=== PATIENT | female | born 2005 | race Caucasian/White ===

== ENCOUNTER 2024-11-17 09:56 | Emergency (ER) | payer OTHER, SELFPAY ==
[2024-11-17 10:01] VITALS: BP 128/85; PULSE 77; TEMP 36.5; O2SAT 97; BMI 25.7
--- OUTSIDE RECORDS SUMMARY | 2024-11-17 10:04 | XMS_ITS | Encounter Summary ---
Author Organization [facility] Address [address] [place] [address] Care Team Providers Care Early Childhood Worker Name Role Phone Bud Park MD Primary Care Provider Unava ilable Encounter Details Date Type Department Care Team (Latest Contact Info) Description 01/31/2006 Outpatient Historical [facility] [place] [address] [place] [phone] Bud Park MD NO ADDRESS ON FILE Unspecified Constipation (Primary Dx); Vaccine for influenza Social History Tobacco Use Types Packs/Day Years Used Date Smoking Tobacco: Never Assessed Comments Unknown Sex and Gender Information Value Date Recorded Sex Assigned at Not on file Legal Sex Female 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
--- OUTSIDE RECORDS SUMMARY | 2024-11-17 10:04 | XMS_ITS | Encounter Summary ---
Author Organization [facility] Address [address] [place] [address] Care Team Providers Care Rabbit Fancier Name Role Phone Garry Busch MD Primary Care Provider [phone] Reason for Visit * Reason Comments Med Refill Encounter Details Date Type Department Care Team (Late st Contact Info) Description 07/29/2020 Refill [facility] [address] [place] [address] Funmilayo Palm, EMERGENCY SERVICE RESTORER [address] [facility] [address] [place] [address] Chronic post-traumatic headache, not intractable Social History Tobacco Use Types Packs/Day Years Used Date Smoking Tobacco: Never Smokeless Tobacco: Never Alcohol Use Standard Drinks/Week Comments Never 0 (1 standard drink = 0.6 oz pur e alcohol) AUDIT-C Answer Date Recorded Q1: How often do you have a drink containing alc ohol? Never 03/01/2020 Average Number of Drinks Not on file 021 Frequency of Binge Drinking Not on file 07/2020 PHQ-2 Answer Date Recorded PHQ-2 Score 0 10/14/2019 Comments Unknown Sex and Gender Information Value Date Recorded Sex Assigned at Not on file Legal Sex Female 8:24 PM CDT Gender Identity Not on file Sexual Orientation Not on file documented as of this encounter Miscellaneous Notes * Telephone Encounter - Tomeka Martin - 08/01/2020 2:08 PM CDT See below * Telephone Encounter - Lashawn Pina CMA - 07/31/2020 8:02 AM CDT NO FOLLOW UP documented in this encounter Plan of Treatment Upcoming Encounters Date Type Department Care Team (Late st Contact Info) Description 01/13/2025 2:30 PM HAND EDGE BANDER Office Visit [facility] [place] - Primary Care [address] [facility] [address] [place] [address] Silvia Gong MD [address] [facility] [place] [address] 02/14/2025 10:30 AM HAND EDGE BANDER [facility] [address] [facility] [address] [place] [address] Keri Ewing, PMHN [address] [facility] [address] [place] [address] documented as of this encounter Visit Diagnoses Diagnosis Chronic post-traumatic headache, not intractable documented in this encounter Additional Health Concerns Health Status Noted Date Alive and well 09/24/2018 Infection Onset Date Last Indicated Resolved Time COVID-19/Influenza (Rule Out) 02/07/2023 02/07/2023 02/07/2023 10:12 AM HAND EDGE BANDER COVID-19 (confirmed) 02/07/2023 02/07/202314/2 024 4:00 AM HAND EDGE BANDER documented as of this encounter Care Teams Rabbit Fancier Relationship Specialty Start Date End Date Garry Busch MD [address] [place] [address] PCP - General Internal Medicine 10/20/23 documented as of this encounter
--- OUTSIDE RECORDS SUMMARY | 2024-11-17 10:04 | XMS_ITS | Encounter Summary ---
Author Organization [facility] Address [address] [place] [address] Care Team Providers Care Leave Specialist Name Role Phone Bud Park MD Primary Care Provider Unava ilable Encounter Details Date Type Department Care Team (Latest Contact Info) Description 01/31/2006 Outpatient Historical [facility] [place] [address] [place] [address] Bud Park MD NO ADDRESS ON FILE Vomiting Alone (Primary Dx) Social History Tobacco Use Types Packs/Day Years Used Date Smoking Tobacco: Never Assessed Comments Unknown Sex and Gender Information Value Date Recorded Sex Assigned at Not on file 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
--- OUTSIDE RECORDS SUMMARY | 2024-11-17 10:04 | XMS_ITS | Encounter Summary ---
Author Organization [facility] Address [address] [place] [address] Care Team Providers Care Marketing Professor Name Role Phone Bud Park MD Primary Care Provider Unava ilable Encounter Details Date Type Department Care Team (Latest Contact Info) Description 10/03/2006 Outpatient Historical [facility]s-[facility] [place] [address] [place] [address] Bud Park MD NO ADDRESS ON FILE Routine Child Health Exam (Primary Dx) Social History Tobacco Use Types Packs/Day Years Used Date Smoking Tobacco: Never Assessed Comments Unknown Sex and Gender Information Value Date Recorded Sex Assigned at Not on file 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
--- OUTSIDE RECORDS SUMMARY | 2024-11-17 10:04 | XMS_ITS | Clinical Summary ---
Author Organization [facility] Address [address] H[address]: Epic Prelude [place]T [place] [address] Care Team Providers Care Pole Shaver Helper Name Role Phone Bud Park MD Primary Care Provider Unava ilable Allergies No known active allergies Medications ondansetron (ZOFRAN ODT) 4 mg Tablet, Rapid DissolveIndicat ions:Encounter for laboratory testing for COVID-19 virus Take 1 Tablet (4 mg) by mouth every 8 hours as needed for Nausea/Emesis . Dissolve tablet on top of tongue, then swallow with saliva. 15 Tablet 10/28/2023 Active Active Problems Problem Noted Date Diagnosed Date Simple tics 09/30/2014 Asthma 01/05/2010 Encounters Date Type Department Care Team Description 10/26/2024 External Device Data [facility] ABSTRACTION Provider, Abstract 10/12/2024 External Device Data [facility] [place] Provider, Abstract 10/12/2024 External Device Data [facility] [place] Provider, Abstract 09/29/2024 External Device Data [facility] Provider, Abstract 09/28/2024 External Device Data [facility] Provider, Abstract 09/08/2024 External Device Data [facility] [place] Provider, Abstract 09/08/2024 External Device Data [place] Provider, Abstract 09/07/2024 External Device Data [facility] Provider, Abstract 08/24/2024 External Device Data [facility] [place] Provider, Abstract 08/17/2024 External Device Data [facility] [place]CTION Provider, Abstract from Last 3 Months Immunizations Immunization Administration Dates Next Due (ADACEL/BOOSTRIX)(10 YR UP) TDAP VACCINE, 0.5ML, IM 11/09/2015 (GARDASIL)(9-45 YRS) HUMAN PAPILLOMAVIRUS VACCINE, TYPES 6, 11, 16, 18, QUADRIVALENT (4VHPV), 3 DOSE, IM 03/24/2018,09/02/2017 (INFANRIX)(6 WKS-6 YRS) DIPT HERIA, TETANUS TOXOIDS, AND ACCELLULAR PERTUSSIS VACCINE (DTAP), 0.5 ML IM 12/06/2009 (IPOL)(6 WKS AND UP) POLIOVI MATTHEW VACCINE, INACTIVATED (IPV), 3 DOSE, SUBCUT OR IM 12/06/2009 (M-M-R II/PRIORIX)(12 MO UP) MEASLES, MUMPS AND RUBELLA VIRUS VACCINE, 0.5 ML IM/SUBCUT 12/06/2009,08/16/2005 (VARIVAX)(12 MOS UP)VARICELL A VIRUS VACCINE (PF) 0.5 ML, SUB CUT 12/06/2009,08/16/2005 Dt Dtp Dtap Vaccine 08/16/2005, 5,2004,10/04 HIB, Unspecified Formulation 08/16/2005, 02/04/2005,2004,10/04 Hepatitis A Vaccine 10/03/2006,03/03/2006 Hepatitis B Vaccine 02/04/2005,2004,2004 IPV/OPV 02/04/2005,2004,2004 Influenza Seasonal Unspecifi ed Formulation IM 03/03/2006,02/03/2006 Meningococcal ACWY Vaccine, Unspecified Formulation 11/09/2015 Pneumococcal 7-valent conjug ate vaccine IM 08/16/2005,02/04/2005,2004,10/04 Family History Medical History Relation Name Comments Healthy Brother 1 Healthy Brother 2 Healthy Father Diabetes Maternal Grandfather High Cholesterol Maternal Grandfather Hypertension Maternal Grandfather High Cholesterol Maternal Grandmother Thyroid Disease Maternal Grandmother High Cholesterol Mother Hypertension Mother Thyroid Disease Paternal Grandmother Breast Cancer Neg Hx Cancer Neg Hx Colon Cancer Neg Hx Depression Neg Hx Genetic Disorders Neg Hx Hearing Loss Neg Hx Heart Disease Neg Hx Kidney Disease Neg Hx Liver Disease Neg Hx Lung Cancer Neg Hx Melanoma Neg Hx Osteoporosis Neg Hx Ovarian Cancer Neg Hx Respiratory Disease Neg Hx Stroke Neg Hx Relation Name Status Comments Brother 1 Alive Brother 2 Alive Father Alive Maternal Grandfather Maternal Grandmother Mother Alive Paternal Grandmother Social History Tobacco Use Types Packs/Day Years Used Date Smoking Tobacco: Never Smokeless Tobacco: Never Tobacco Cessation:Counseling Given: Not Answered Adolescent Education Answer Date Record ed Getting School Help Needed Not on file 10/27 Comments Unknown Sex and Gender Information Value Date Recorded Sex Assigned at Not on file Legal Sex Female 4:43 PM NATUROPATHIC ONCOLOGY PROVIDER Gender Identity Not on file Sexual Orientation Not on file Last Filed Vital Signs Vital Sign Reading Time Taken Comments Blood Pressure 135/80 10/28/2023 1:11 PM CDT Pulse 103 10/28/2023 1:11 PM CDT Temperature 38.8 C (101.9 F) 10/28/2023 1:11 PM CDT Respiratory Rate 18 10/28/2023 1:11 PM CDT Oxygen Saturation 98% 10/28/2023 1:11 PM CDT Inhaled Oxygen Concentration - - Weight 53.1 kg (117 lb) 10/28/2023 1:11 PM CDT Height 157.5 cm (5' 2 ) 10/28/2023 1:11 PM CDT Body Mass Index 21.4 10/28/2023 1:11 PM CDT Plan of Treatment Health Maintenance Due Date Last Done Comments CHLAMYDIA SCREENING (ANNUAL) 11-24 YEARS 08/06/2015 INFLUENZA VACCINE (#1) 2024 7, 03/03/2006, 02/03/2006, Additional history exists DTAP/TDAP/TD VACCINES (7 - T d or Tdap) 11/08/2025 11/09/2015, 12/06/2009, 08/16/2005, Additional history exists HEPATITIS B VACCINES Completed 02/04/2005, 2004, 2004 HPV VACCINES Completed 03/24/2018, 09/02/2017 Insurance [facility] Care Teams Pole Shaver Helper Relationship Specialty Start Date End Date Bud Park MD PCP - General 03/05/07
--- OUTSIDE RECORDS SUMMARY | 2024-11-17 10:04 | XMS_ITS | Encounter Summary ---
Author Organization [facility] Address [address] [place] [address] Care Team Providers Care Tunneling Machine Operator Name Role Phone Garry Busch MD Primary Care Provider Encounter Details Date Type Department Care Team (Late st Contact Info) Description 03/01/2020 Orders Only [facility] [address] [facility] [address] [place] [address] Robert Ahmadi MD [address] [place] [address] Social History Tobacco Use Types Packs/Day Years [...] on file Sexual Orientation Not on file COVID-19 Exposure Response Date Recorded In the last month, have you been in contact with someone who was confirmed or suspected to have Coronavirus / COVID-19? No / Unsure 03/01/2020 10:11 AM SAP HANA DEVELOPER documented as of this encounter Functional Status documented as of this encounter Plan of Treatment Upcoming Encounters Date Type Department Care Team (Late st Contact Info) Description 01/13/2025 2:30 PM SAP HANA DEVELOPER Office Visit [facility] [place] - Primary Care [address] [place] [address] Silvia Gong MD [address] [place] [address] 02/14/2025 10:30 AM SAP HANA DEVELOPER Telemedicine [facility] [place] - Behavioral Health [address] [facility] [address] [place] [address] Keri Ewing, PMHNP [address] [facility] [address] [place] [address] documented as of this encounter Visit Diagnoses Not on filedocumented in this encounter Additional Health Concerns Health Status Noted Date Alive and well 09/24/2018 Infection Onset Date Last Indicated Resolved Time COVID-19/Influenza (Rule Out) 02/07/2023 02/07/2023 02/07/2023 10:12 AM SAP HANA DEVELOPER COVID-19 (confirmed) 02/07/2023 02/07/2023 024 4:00 AM SAP HANA DEVELOPER documented as of this encounter Care Teams Tunneling Machine Operator Relationship Specialty Start Date End Date Garry Busch MD [address] [facility] [address] [place] [address] PCP - General Internal Medicine 10/20/23 documented as of this encounter
--- OUTSIDE RECORDS SUMMARY | 2024-11-17 10:04 | XMS_ITS | Encounter Summary ---
Author Organization [facility] Address [address] [place] [address] Care Team Providers Care Storage And Backup Administrator Name Role Phone Bud Park MD Primary Care Provider Unava ilable Encounter Details Date Type Department Care Team (Latest Contact Info) Description 02/03/2006 Outpatient Historical [facility] Pediatric[facility] [place] [address] [place] [address] Bud Park MD NO ADDRESS ON FILE Vomiting Alone (Primary Dx); Vaccine for influenza Social History Tobacco Use Types Packs/Day Years Used Date Smoking Tobacco: Never Assessed Comments Unknown Sex and Gender Information Value Date Recorded Sex Assigned at Not on file Legal Sex Female 5:03 AM INTELLIGENCE SUPPORT OFFICER Gender Identity Not on file Sexual Orientation Not on file documented as of this encounter Plan of Treatment Not on file documented as of this encounter Visit Diagnoses Diagnosis Vomiting alone- Primary Vaccine for influenza Need for prophylactic vaccination and inoculation against influenza documented in this encounter Care Teams Storage And Backup Administrator Relationship Specialty Start Date End Date Bud Park MD PCP - General 03/05/07 documented as of this encounter
--- OUTSIDE RECORDS SUMMARY | 2024-11-17 10:04 | XMS_ITS | Encounter Summary ---
Author Organization [facility] Address [address] [place] [address] Care Team Providers Care Director Learning Services Name Role Phone Bud Park MD Primary Care Provider Unava ilable Encounter Details Date Type Department Care Team (Latest Contact Info) Description 02/03/2006 Outpatient Historical [facility] [address] [place] [address] Bud Park MD NO ADDRESS ON FILE Dyspepsia and Other Specified Disorders of Function of Stomach (Primary Dx) Social History Tobacco Use Types Packs/Day Years Used Date Smoking Tobacco: Never Assessed Comments Unknown Sex and Gender Information Value Date Recorded Sex Assigned at Not on file Legal Sex Female 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
--- OUTSIDE RECORDS SUMMARY | 2024-11-17 10:04 | XMS_ITS | Clinical Summary ---
Author Organization [facility] Address [address] 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 Gender Identity Not on file Sexual Orientation Not on file Occupation Industry Job Start Date Job End Date Not on file Not on file Not on file Not on file Last Filed Vital Signs Vital Sign Reading Time Taken Comments Blood Pressure 124/58 10/01/2019 10:35 AM CDT Pulse 104 10/01/2019 10:35 AM CDT Temperature 36.6 C (97.9 F) 05/01/2018 2:15 PM WINDOWS DEPLOYMENT TECHNICIAN Respiratory Rate 18 05/12/2016 1:33 PM CDT Oxygen Saturation 99% 05/12/2016 1:33 PM CDT Inhaled Oxygen Concentration - - Weight 53.3 kg (117 lb 8 oz) 10/01/2019 10:35 AM CDT Height 158.8 cm (5' 2.5 ) 10/01/2019 10:35 AM CD T Body Mass Index 21.15 10/01/2019 10:35 AM CDT Plan of Treatment Health Maintenance Due Date Last Done Comments CHLAMYDIA SCREENING (ANNUAL) 11-24 YEARS 08/06/2015 INFLUENZA VACCINE (#1) 2024 7, 03/03/2006, 02/03/2006, Additional history exists DTAP/TDAP/TD VACCINES (7 - T d or Tdap) 11/08/2025 11/09/2015, 12/06/2009, 08/16/2005, Additional history exists HEPATITIS B VACCINES Completed 02/04/2005, 2004, 2004 HPV VACCINES Completed 03/24/2018, 09/02/[address] [facility] Care Teams Human Resources District Manager Relationship Specialty Start Date End Date Bud Park MD PCP - General 03/05/07
--- OUTSIDE RECORDS SUMMARY | 2024-11-17 10:04 | XMS_ITS | Encounter Summary ---
Author Organization [facility] Address [address] [place] [address] Care Team Providers Care Penology Professor Name Role Phone Bud Park MD Primary Care Provider Unava ilable Encounter Details Date Type Department Care Team (Latest Contact Info) Description 03/03/2006 Outpatient Historical [facility] [place] [address] [place] [id number] Bud Park MD NO ADDRESS ON FILE Vomiting Alone (Primary Dx); Dyspepsia and Other Specified Disorders of Function of Stomach; Vaccine for influenza; Vaccine for viral hepatitis Social History Tobacco Use Types Packs/Day Years Used Date Smoking Tobacco: Never Assessed Comments Unknown Sex and Gender Information Value Date Recorded Sex Assigned at Not on file Legal Sex Female 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 Gender Identity Not on file Sexual Orientation Not on file documented as of this encounter Plan of Treatment Not on file documented as of this encounter Visit Diagnoses Diagnosis Vomiting alone- Primary Dyspepsia and other specified disorders of function of stomach Vaccine for influenza Need for prophylactic vaccination and inoculation against influenza Vaccine for viral hepatitis Need for prophylactic vaccination and inoculation against viral hepatitis documented in this encounter Care Teams Penology Professor Relationship Specialty Start Date End Date Bud Park MD PCP - General 03/05/07 documented as of this encounter
--- OUTSIDE RECORDS SUMMARY | 2024-11-17 10:04 | XMS_ITS | Encounter Summary ---
Author Organization [facility] Address [address] [place] [facility] [place] [address] Care Team Providers Care Elevator Examiner And Adjuster Name Role Phone Garry Busch MD Primary Care Provider Encounter Details Date Type Department Care Team (Late st Contact Info) Description 04/02/[address] [facility] Radiology [address] [place] [address] System, Provider Not In, [address] [place] [address] Social History Tobacco Use Types Packs/Day Years [...] st Contact Info) Description 01/13/2025 2:30 PM CEMENT SPRAYER HELPER Office Visit [facility] [place] - Primary Care [address] [facility] [address] [place] [address] Silvia Gong MD [address] [place] [address] 02/14/2025 10:30 AM CEMENT SPRAYER HELPER Telemedicine [facility] [place] - Behavioral Health [address] [facility] [address] [place] [address] Keri Ewing Theron, PMHNP [address] [facility] [address] [place] [address] documented as of this encounter Procedures Procedure Name Priority Date/Time Associated Diagnosis Comments OUTSIDE IMAGES 04/02/2014 1:29 PM CEMENT SPRAYER HELPER documented in this encounter Results * Outside Images (04/02/2014 1:29 PM CEMENT SPRAYER HELPER) Anatomical Region Laterality Modality N/A Radiographic Helen ging 04/02/2014 1:29 PM CEMENT SPRAYER HELPER Narrative 04/02/2014 1:29 PM CEMENT SPRAYER HELPER Historic images from [facility] exist and can be viewed by using the hyperlink to access [facility] p[facility]: Peds Chest - 2 Views Procedure Note System, Provider Not In - 06/21/2016 Historic images from [facility] exist and can be viewedby using the hyperlink to access [facility] pacs: Peds Chest - 2 Views us Provider Not In System MD [facility] Final Result documented in this encounter Visit Diagnoses Not on filedocumented in this encounter Additional Health Concerns Infection Onset Date Last Indicated Resolved Time COVID-19/Influenza (Rule Out) 02/07/2023 02/07/2023 02/07/2023 10:12 AM CEMENT SPRAYER HELPER COVID-19 (confirmed) 02/07/2023 02/07/202303/09/ 024 4:00 AM CEMENT SPRAYER HELPER documented as of this encounter Care Teams Elevator Examiner And Adjuster Relationship Specialty Start Date End Date Garry Busch MD [address] [facility] [address] [place] [address] PCP - General Internal Medicine 10/20/23 documented as of this encounter
--- OUTSIDE RECORDS SUMMARY | 2024-11-17 10:04 | XMS_ITS | Clinical Summary ---
Author Organization [facility] Address [address] [place] [address] Care Team Providers Care Urology Physician Name Role Phone Garry Busch MD Primary Care Provider [phone] Allergies No known active allergies Medications Lo Loestrin Fe 1 mg-10 mcg (24)/10 mcg (2) tablet 3 Active SUMAtriptan (IMITREX) 50 mg tabletIndication s:Chronic post-traumatic headache, not intractable Take 0.5 tablets (25 mg total) by mouth once as needed for migraine. May repeat dose once after at least 2 hours after the first dose if the headache has not resolved or returns 9 tablet 1 5 04/08/19 26 Active chlorpheniramine -phenyleph-DM (Ed A-Hist DM) 4-10-10 mg tabletIndication s:Environmental allergies Take 1 tablet by mouth in the morning and 1 tablet in the evening. 20 tablet 5 Active fluticasone propionate (FLONASE) 50 mcg/actuation nasal sprayIndications :Environmental allergies Administer 2 sprays into each nostril in the morning. 16 g 3 5 08/03/19 26 Active topiramate (TOPAMAX) 25 mg tablet 5 Active sertraline (ZOLOFT) 25 mg tabletIndication s:Depression with anxiety Take 1 tablet by mouth daily with 50 mg tablet. 30 tablet 3 5 Active sertraline (ZOLOFT) 50 mg tabletIndication s:Depression with anxiety Take 1 full tablet by mouth daily 30 tablet 3 5 Active Active Problems Problem Noted Date Diagnosed Date History of migraine headaches 07/08/2024 Overview (07/08/2024): Patient reported headaches has been very well controlled, with more free days headache, she can not tolerate the medication very well, no medication side effects noted, medication compliance counseling, exercise counseling Assessment & Plan (07/08/2024 3:57 PM CDT): Patient reported headaches has been very well controlled, with more free days headache, she can not tolerate the medication very well, no medication side effects noted, medication compliance counseling, exercise counseling Chronic post-traumatic headache, not intractable 10/20/2023 Assessment & Plan (10/20/2023 10:35 AM CDT): Counseled on daily use of excedrin and tylenol, alternating. Trial this for 2 months. Assess for medical etiologies with labs today. Anxiety 10/20/2023 Overview (07/08/2024): Relaxation technique counseling, able to tolerate medications very well no, no side effects noted, medication compliance counseling, exercise counseling Assessment & Plan (07/08/2024 3:58 PM CDT): Relaxation technique counseling, able to tolerate medications very well no, no side effects noted, medication compliance counseling, exercise counseling Assessment & Plan (10/20/2023 10:34 AM CDT): Behavioral health referral. She feels talking about her stressors would be beneficial. Associated with school and life pressures. Encouraged schedule modifications including stress free periods scheduled throughout the day with relaxing music or dark room. Encouraged daily exercise and keeping regular routines. Encounters Date Type Department Care Team Description 10/18/2024 10:30 AM CDT Office Visit [facility] Rupali Archer - Behavioral [address] [place] [phone] Keri Ewing Theron, [facility] Depression with anxiety 10/18/2024 Travel 10/07/2024 Travel from Last 3 Months Immunizations Immunization Administration Dates Next Due DTaP (INFANRIX) 12/06/2009, 6,02/04/2005,12/04,2004 DTaP / Hep B / IPV (PEDIARIX) 02/04/2005, 005 DTaP / IPV (KINRIX, QUADRACEL) 12/06/2009 HPV, quadrivalent 03/24/2018,09/02/2017 HPV9 (GARDASIL 9) 03/24/2018,09/02/2017 Hep A, adult (HAVRIX, VAQTA) 10/03/2006,03/03/19 07 Hep A, unspecified 10/03/2006,03/03/2006 Hep B, adolescent or pediatr ic (RECOMBIVAX HB, ENGERIX-B) 2004 Hep B, adult (RECOMBIVAX HB, ENGERIX-B) 02/04/2005,2004,2004 Hib (PRP-T) (ACTHIB, HIBERIX) 08/16/2005 ,02/04/2005,2004,10/04 Hib, unspecified 08/16/2005, 5,2004,10/04 IPV (IPOL) 12/06/2009, 5,2004,10/04 Influenza, injectable, MDCK, preservative free, quadrivalent (FLUCELVAX) 12/17/2022 MMR (M-M-R II) 12/06/2009,08/16/2005 MMRV (PROQUAD) 08/16/2005 Meningococcal ACWY, unspecified 11/09/2015 Pfizer Purple Cap SARS-CoV-2 Vaccination 09/29/2020,09/08/2020 Tdap (BOOSTRIX, ADACEL) 11/09/2015 influenza, injectable, quadr ivalent, preservative free (AFLURIA/FLUARIX/FLULAVAL/FLUZONE) 03/03/2006,02/03/2006 influenza, injectable, triva lent (AFLURIA/FLUZONE MDV) 03/03/2006,02/03/2006 meningococcal MCV4P (MENACTRA) 09/27/2021,2015 pneumococcal conjugate PCV 7 (PREVNAR 7) 08/16/2005,02/04/2005,2004,10/04 polio, unspecified 08/16/2005 varicella (VARIVAX) 12/06/2009,08/16/2005 Family History Medical History Relation Name Comments No Known Problems Father Diabetes Maternal Grandfather Hyperlipidemia Maternal Grandfather Hypertension Maternal Grandfather Hyperlipidemia Maternal Grandmother Hypertension Maternal Grandmother Thyroid disease Maternal Grandmother Hyperlipidemia Mother Hypertension Mother Alcohol abuse Paternal Grandfather Liver disease Paternal Grandfather Thyroid disease Paternal Grandmother Relation Name Status Comments Father Alive Maternal Grandfather Alive Maternal Grandmother Alive Mother Alive Paternal Grandfather Alive Paternal Grandmother Alive Social History Tobacco Use Types Packs/Day Years Used Date Smoking Tobacco: Never Smokeless Tobacco: Never Tobacco Cessation:Counseling Given: Yes Alcohol Use Standard Drinks/Week Comments Never 0 (1 standard drink = 0.6 oz pur e alcohol) [facility] [employer] Answer Date Recorded In the past 12 months has e [employer], gas, oil, or water [employer] threatened to shut off services in your home? No 07/08/2024 Humiliation, Afraid, Rape, and Kick questionnair e Answer Date Recorded Within the last year, have y ou been afraid of your partner or ex-partner? No 01/15/2024 Within the last year, have y ou been humiliated or emotionally abused in other ways by your partner or ex-partner? No Within the last year, have y ou been kicked, hit, slapped, or otherwise physically hurt by your partner or ex-partner? No 01/15/2024 Within the last year, have y ou been raped or forced to have any kind of sexual activity by your partner or ex-partner? No 01/15/2024 AUDIT-C Answer Date Recorded Q1: How often do you have a drink containing alc ohol? Never 03/01/2020 Average Number of Drinks Not on file 021 Frequency of Binge Drinking Not on file 07/2020 PHQ-2 Answer Date Recorded PHQ-2 Score 0 10/18/2024 Hunger Vital Sign Answer Date Recorded Within the past 12 months, y ou worried that your food would run out before you got the money to buy more. Never true 07/09/19 Within the past 12 months, t he food you bought just didn't last and you didn't have money to get more. Never true 07/08/2024 PRAPARE - Transportation Answer Date Re corded In the past 12 months, has l ack of transportation kept you from medical appointments or from getting medications? No 06/24 In the past 12 months, has l ack of transportation kept you from meetings, work, or from getting things needed for daily living? No 07/08/2024 Housing Stability Vital Sign Answer Campbell e Recorded In the last 12 months, was t here a time when you were not able to pay the mortgage or rent on time? No 07/08/2024 Number of Times Moved in the Last Year Not on fi le 07/08/2024 At any time in the past 12 m [facility], were you homeless or living in a long term (including now)? No 07/08/2024 Comments No Sex and Gender Information Value Date Recorded Sex Assigned at Not on file Legal Sex Female 8:24 PM CDT Gender Identity Not on file Sexual Orientation Not on file Last Filed Vital Signs Vital Sign Reading Time Taken Comments Blood Pressure 120/77 10/18/2024 10:18 AM CDT Pulse 64 10/18/2024 10:18 AM CDT Temperature 36.9 C (98.4 F) 08/02/2024 10:27 AM CDT Respiratory Rate 18 09/29/2020 4:14 PM CDT Oxygen Saturation 98% 08/02/2024 10:27 AM CDT Inhaled Oxygen Concentration - - Weight 66 kg (145 lb 9.6 oz) 10/18/2024 10:18 AM CDT Height 160 cm (5' 3 ) 10/18/2024 10:18 AM CDT Body Mass Index 25.79 10/18/2024 10:18 AM CDT Plan of Treatment Upcoming Encounters Date Type Department Care Team (Late st Contact Info) Description 01/13/2025 2:30 PM SHANKER OUT Office Visit [facility] Rupali Archer - Primary Care [address] [place] [address] Silvia Gong MD [address] [place] [address] 02/14/2025 10:30 AM SHANKER OUT [facility] [address] [facility] [address] [place] [id number] Keri Ewing Theron, PMHNP [address] [facility] [address] [place] [address] Health Maintenance Due Date Last Done Comments Annual Wellness 09/30/2020 10/01/2019, 0802/2018, 09/26/2017, Additional history exists Pneumococcal Vaccine: Pediatrics (0 to 5 Years) and At-Risk Patients (6 to 49 Years) (1 of 2 - PCV) 08/06/2023 08/16/2005, 08/16/2005, 02/04/2005, Additional history exists Influenza Vaccination (#1) 09/24/202412/17, 03/03/2006, 03/03/2006, Additional history exists COVID-19 Vaccine ( - season) 2024 09/29/2020, 09/08/2020 Td, Tdap Vaccines Adult 11/08/2025 11/09/2015 Hepatitis B Vaccines Completed 02/04/2005, 02/04/2005, 2004, Additional history exists HIB Vaccines Completed 08/16/2005, 07/26, 02/04/2005, Additional history exists Hepatitis A Vaccines Completed 10/03/2006, 10/03/2006, 03/03/2006, Additional history exists IPV Vaccines Completed 12/06/2009, 11/24, 08/16/2005, Additional history exists MMR Vaccines Completed 12/06/2009, 07/26, 08/16/2005 Varicella Vaccines Completed 12/06/2009, 0 08/16/2005, 08/16/2005 HPV Vaccines Completed 03/24/2018, 02/25, 09/02/2017, Additional history exists Meningococcal Vaccines Completed 2, 11/09/2015, 11/09/2015 RSV Mab Nirsevimab (Beyfortus) <20 months Aged Out No longer eligibl e based on patient's age to complete this topic Rotavirus Vaccines Aged Out No longer eligible based on patient's age to complete this topic Goals Goal Patient Goal Type Associated Problems Recent Progress Patient-Stated? Author Coping skills General On track( 025 7:06 PM SHANKER OUT) Yes Smita Reese LCSW Note: For client to better manage her anxiety without feeling overwhelmed Insurance [facility] [place] [id number] Care Teams Urology Physician Relationship Specialty Start Date End Date Garry Busch MD [address] [place] [address] PCP - General Internal Medicine 10/20/23
--- NOTE | 2024-11-17 10:26 | ED_ITS ---
HPI - Abdominal Pain 2 General: Chief Complaint: Abdominal Pain Stated Complaint: Lower L abd pain, n/v/d Time Seen by Provider: 11/17/24 09:57 History of Present Illness: 19-year-old female presents emergency ro om complaining of left lower quadrant abdominal pain radiates from the left flank but more focal to the left side of the pelvis at this time.. She has had some nausea vomiting and diarrhea associated with it as well. No dysuria urgency or frequency. She denies any hematuria. No fever sweats or chills. Associated Symptoms: Reports diarrhea, nausea and vomiting; Denies chills, dysuria and fever(s) Related Data Home Medications ?Medication ?Instructions ?Recorded ?Confirmed norethindrone 1 mg-ethinyl 1 tab PO QPM 11/17/2411/17 estradiol 10 mcg (24)-iron 10 mcg(2) tablet (Lo Loestrin Fe) sertraline 50 mg tablet (Zoloft) 75 mg PO QPM 11/17/24 11/17/24 sumatriptan succinate 50 mg tablet 50 mg PO DAILY PRN Migraine 11/17/24 11/17/24 Headache topiramate 25 mg tablet (Topamax) 25 mg PO QPM 5 11/17/24 Previous Rx's ?Medication ?Instructions ?Recorded hydrocodone 5 mg-acetaminophen 325 1 tab PO Q6H PRN pa in #5 tabs 11/17/24 mg tablet ondansetron 4 mg disintegrating 4 mg PO Q8H PRN nausea and 11/17/24 tablet vomiting #7 tabs Allergies Allergy/AdvReac Type Severity Reaction Status Date / Time No Known Allergies Allergy Verified 11/17/24 10:05 Review of Systems 2 Const: Denies: fever(s) or chills Card: Denies: chest pain Resp: Denies: dyspnea GI: Reports: abdominal pain, nausea, vomiting and diarrhea : Denies: dysuria, urinary frequency or urinary urgency Musc: Denies: neck pain or back pain Skin/Breast: Denies: rash PFSH ED 2 PFSH: Medical History Left lower quadrant abdominal pain Social History Smoking and tobacco/nicotine status: never used tobacco/nicotine Physical Exam 2 Const: COMMON NORMALS: no acute distress GENERAL APPEARANCE: cooperative and comfortable ORIENTATION/CONSCIOUSNESS: Yes awake, Yes oriented to person, Yes oriented to place and Yes oriented to time HENMT: COMMON NORMALS: normocephalic, atraumatic and hearing grossly normal bilaterally HEAD & SCALP: normocephalic and atraumatic Resp: COMMON NORMALS: normal respiratory effort, No retractions, No use of accessory muscles and clear to auscultation bilaterally AUSCULTATION: clear to auscultation bilaterally Cardio: COMMON NORMALS: regular rate, regular rhythm and No murmurs present (Cardio) RATE: regular rate RHYTHM: regular rhythm GI: COMMON NORMALS: Soft to palpation and No hepatosplenomegaly present A USCULTATION: Yes normoactive bowel sounds PALPATION: Yes Soft to palpation, No Tenderness to palpation present (GI), No Guarding due to palpation present (GI) and Yes No hepatosplenomegaly present Extremity: COMMON NORMALS: normal to inspection, capillary refill normal, no clubbing, cyanosis or edema, no calf tenderness and no pedal edema Neuro: SENSORIUM/ORIENTATION: Yes oriented to person, Yes oriented to place and Yes oriented to time Skin: COMMON NORMALS: no rashes or lesions noted GENERAL SKIN EXAM: no rashes or lesions noted Course 2 Vital Signs: Vital signs: Vital Signs Temperature 97.7 F 11/17/24 10:01 Pulse Rate 56 L 11/17/24 13:15 Blood Pressure 101/66 11/17/24 13:15 Pulse Oximetry 98 11/17/24 13:15 Oxygen Delivery Me thod Room Air 11/17/24 10:01 MDM - Abdominal Pain Medical Decision Making Hematuria noted. Patient states pain is still present but somewhat improved after the ultrasound CT for renal stone shows dilated ureter appears to have passed a kidney stone nonvisualized within the ureter at this time. She is still having some flank pain suspect from ureteral spasm from recent passage of the stone. Will discharge patient home refer to urology pain medication given for the ureteral spasm asked her to strain her urine. Return if pain uncontrolled Medical Records I reviewed the patient's medical records. Lab Data I reviewed the patient's lab results. 11/17/24 10:39 11/17/24 10:39 Labs/Radiology: Radiology Impressions Pelvic/Transvag US 11/17/24 10:33 IMPRESSION: 1. Normal uterus and endometrium. 2. Neither ovary is identified. 3. No free fluid. Abdomen/Pelvis CT 11/17/24 12:08 IMPRESSION: 1. Slight inflammatory stranding and edema about the LEFT proximal ureter with mild dilatation of the LEFT renal pelvis. No visualized obstructing LEFT renal or ureteral calculi. Findings may be due to recently passed calculus. No calculi visualized in the bladder. Pelvic phleboliths. 2. Tiny nonobstructing calyceal tip calculi bilaterally. No hydronephrosis in the RIGHT kidney. 3. No other acute findings. Laboratory Results WBC 9.38 10^3/uL (4.5-13.0) 11/17/24 10:39 RBC 4.75 10^6/uL (3.85-5.65) 11/17/24 10:39 Hgb 13.90 g/dL (12.4-14.8) 11/17/24 10:39 Hct 41.3 % (36-47) 11/17/24 10:39 MCV 86.9 fl (85-98) 11/17/24 10:39 MCH 29.3 pg (27-33) 11/17/24 10:39 MCHC 33.7 g/dL (30-55) 11/17/24 10:39 RDW 11.9 % (12.1-15.1) L 11/17/24 10:39 Plt Count 317 10^3/cmm (157-399) 11/17/24 10:39 MPV 8.7 fL (7.4-10.4) 11/17/24 10:39 Neut % (Auto) 75.9 % 11/17/24 10:39 Lymph % (Auto) 14.8 % 11/17/24 10:39 Brazos % (Auto) 7.2 % 11/17/24 10:39 Eos % (Auto) 0.7 % 11/17/24 10:39 Baso % (Auto) 0.4 % 11/17/24 10:39 Neut # (Auto) 7.11 10^3/uL (1.8-8.0) 11/17/24 10:39 Lymph # (Auto) 1.4 10^3/uL (1.5-6.5) L 11/17/24 10:39 Brazos # (Auto) 0.7 10^3/uL (0.2-0.9) 11/17/24 10:39 Eos # (Auto) 0.1 10^3/uL (0.0-0.8) 11/17/24 10:39 Baso # (Auto) 0.0 10^3/uL (0.0-0.1) 11/17/24 10:39 Nucleated RBC % (auto) 0 % 11/17/24 10:39 Nucleated RBCs # 0.0 /100WBC 11/17/24 10:39 Sodium 138 mmol/L (136-145) 11/17/24 10:39 Potassium 3.8 mmol/L (3.5-5.1) 11/17/24 10:39 Chloride 104 mmol/L (98-107) 11/17/24 10:39 Carbon Dioxide 23 mmol/L (22-29) 11/17/24 10:39 Anion Gap 14.8 (5-19) 11/17/24 10:39 BUN 12 mg/dL (6-20) 11/17/24 10:39 Creatinine 0.9 mg/dL (0.5-0.9) 11/17/24 10:39 GFR Calculation 79.8 mL/min (90-130) L 11/17/24 10:39 Glucose 106 mg/dL (65-115) 11/17/24 10:39 Calculated Osmolality 286 mOsm/kg (285-295) 11/17/24 10:39 Calcium 9.2 mg/dL (8.5-10.5) 11/17/24 10:39 Total Bilirubin 0.6 mg/dL (0.15-1.2) 11/17/24 10:39 AST 15 U/L (0-32) 11/17/24 10:39 ALT 18 U/L (0-33) 11/17/24 10:39 Alkaline Phosphatase 68 U/L (35-105) 11/17/24 10:39 Total Protein 7.5 g/dL (6.6-8.7) 11/17/24 10:39 Albumin 4.6 g/dL (3.5-5.2) 11/17/24 10:39 Globulin 2.9 g/dL (1.3-4.6) 11/17/24 10:39 Lipase 18 U/L (13-60) 11/17/24 10:39 HCG, Qual Negative (Negative) 11/17/24 10:39 Urine Color Dark yellow (Yellow) A 11/17/24 10:37 Urine Appearance Cloudy (CLEAR) A 11/17/24 10:37 Urine pH 5.5 (5-7) 11/17/24 10:37 Ur Specific Cunningham 1.022 (1.005-1.030) 11/17/24 10:37 Urine Protein 1+ (Negative) A 11/17/24 10:37 Urine Glucose (UA) Negative (Normal) 11/17/24 10:37 Urine Ketones Trace (Negative) 11/17/24 10:37 Urine Blood 3+ (Negative) A 11/17/24 10:37 Urine Nitrate Negative (Negative) 11/17/24 10:37 Urine Bilirubin Negative (Negative) 11/17/24 10:37 Urine Urobilinogen 1.0 mg/dL (Negative) 11/17/24 10:37 Ur Leukocyte Esterase Trace (Negative) A 11/17/24 10:37 Urine RBC >100 /hpf (0-2) H 11/17/24 10:37 Urine WBC 0-5 /hpf (0-5) 11/17/24 10:37 Ur Squamous Epith Cells 6-10 /hpf (0-5) 11/17/24 10:37 Amorphous Sediment Not Reportable 11/17/24 10:37 Urine Bacteria None seen /hpf (NONE) 11/17/24 10:37 Hyaline Casts 16.12 /lpf 11/17/24 10:37 All radiology interpretation(s) finalized by discharge Discharge Plan Discharge Patient Disposition: Home Clinical Impression: Calculus of kidney Condition: Stable Prescriptions: New hydrocodone-acetaminophen 5-325 mg tablet 1 tab PO Q6H PRN (Reason: pain) Qty: 5 0RF No Action topiramate [Topamax] 25 mg tablet 25 mg PO QPM sertraline [Zoloft] 50 mg tablet 75 mg PO QPM ondansetron 4 mg tablet,disintegrating 4 mg PO Q8H PRN (Reason: nausea and vomiting) Qty: 7 0RF sumatriptan succinate 50 mg tablet 50 mg PO DAILY PRN (Reason: Migraine Headache) Lo Loestrin Fe 1 mg-10 mcg (24)/10 mcg (2) tablet 1 tab PO QPM Discharge Orders: Discharge ED (Routine); Ordered 11/17/24 Ordered By: Chencho Camacho Discharge Diet: Usual diet Discharge Activity: Increase activity as tolerated Patient Instructions: Kidney Stones (ED), How to Strain Your Urine (ED), Opioid Safety, Pain Management, Patient Portal & Manolo Instructions Activity Restrictions/Additional Instructions: Thank you for choosing [facility] for your healthcare needs today. It is very important that you follow up as instructed or that you return to the Emergency Department should you have concerns or if your condition changes or worsens in any way. Emergency department visits are focused on emergent conditions, in some cases you may require further evaluation on an outpatient basis. You were seen in the emergency room with complaints of left flank and pelvic pain. You were found to have passed a kidney stone. CT and urine showed evidence that you have had a kidney stone but is no longer in the ureter on the CT. You are given pain medicines for ureteral spasm if needed. Recommend you strain your urine case manage will make arrangements for her to follow-up with urology. (Please note that included in your discharge packet is information concerning opioid safety and pain management. This information is given to all patients were discharged from the ER regardless of their discharge diagnosis or the medicines they usually take or are prescribed.) Print Language: Peruvian Coding Level of Care Code ED Artificial Candy Maker for Terrie Dodd
--- NOTE | 2024-11-17 10:33 | US_ITS ---
WS: [id number] US pelv w/transvag [id number] HISTORY: L pelvic pain COMPARISON: None available. Uterus: 7.1 cm x 3.7 cm x 3.2 cm. Normal size anteverted uterus. No fibroid or mass. Endometrium: 0.7 cm. Normal. No increased vascularity or mass. Neither ovary is identified with certainty. No adnexal masses. No free fluid in the cul-de-sac. US/US pelv w/transvag [id number] IMPRESSION: 1. Normal uterus and endometrium. 2. Neither ovary is identified. 3. No free fluid.
[2024-11-17 10:49] LABS: Hematocrit 41.3 % (36-47); Hemoglobin 13.90 g/dL (12.4-14.8); Mean Corpuscular HGB Conc 33.7 g/dL (30-55); Mean Corpuscular Hemoglobin 29.3 pg (27-33); Mean Corpuscular Volume 86.9 fl (85-98); Nucleated Red Blood Cells % 0 %; Platelet Count 317 10^3/cmm (157-399); Red Blood Count 4.75 10^6/uL (3.85-5.65); White Blood Count 9.38 10^3/uL (4.5-13.0)
[2024-11-17 11:02] LABS: Glucose Urine UA Negative (Normal); Nitrate Urine Negative (Negative); Specific Gravity, Urine 1.022 (1.005-1.030)
[2024-11-17 11:05] LABS: HCG, Serum Qual Negative (Negative)
[2024-11-17 11:07] LABS: Add Urine Microscopic? YES
[2024-11-17 11:13] LABS: Alanine Aminotransferase 18 U/L (0-33); Albumin Level 4.6 g/dL (3.5-5.2); Alkaline Phosphatase 68 U/L (35-105); Anion Gap 14.8 (5-19); Aspartate Amino Transferase 15 U/L (0-32); Blood Urea Nitrogen 12 mg/dL (6-20); Calcium 9.2 mg/dL (8.5-10.5); Carbon Dioxide 23 mmol/L (22-29); Chloride 104 mmol/L (98-107); Creatinine Clr Calc Pharmacy 90.9003; Globulin 2.9 g/dL (1.3-4.6); Glucose 106 mg/dL (65-115); Lipase 18 U/L (13-60); Osmolality Calculated 286 mOsm/kg (285-295); Potassium 3.8 mmol/L (3.5-5.1); Sodium 138 mmol/L (136-145); Total Protein 7.5 g/dL (6.6-8.7)
[2024-11-17 11:20] LABS: UA Slide Review UA Slide Review Perf
--- NOTE | 2024-11-17 12:08 | CT_ITS ---
WS: [id number] CT ABDOMEN PELVIS TECHNIQUE: Noncontrast CT of the abdomen and pelvis with coronal and sagittal reformatted images. CLINICAL INFORMATION: flank pain COMPARISON: None. DLP: 396.[address] scans at [facility] use at least one of these dose optimization techniques: automated exposure control; mA and/or kV adjustment per patient size (includes targeted exams where dose is matched to clinical indication); or iterative reconstruction. FINDINGS: Lung bases are well aerated. Normal noncontrast liver and spleen. Normal GE junction. Adrenal glands are normal. Few tiny calyceal tip calculi bilaterally. Pelvic phleboliths. Tiny amount inflammatory stranding and induration about the LEFT proximal ureter although no visualized obstructing LEFT renal or ureteral calculi. No hydronephrosis. Slight prominence of the LEFT renal pelvis. No obstructing RIGHT renal or ureteral calculi. Normal sigmoid colon. No evidence of acute appendicitis. CT/CT kidney stone [id number] IMPRESSION: 1. Slight inflammatory stranding and edema about the LEFT proximal ureter with mild dilatation of the LEFT renal pelvis. No visualized obstructing LEFT renal or ureteral calculi. Findings may be due to recently passed calculus. No calcu li visualized in the bladder. Pelvic phleboliths. 2. Tiny nonobstructing calyceal tip calculi bilaterally. No hydronephrosis in the RIGHT kidney. 3. No other acute findings.
[2024-11-17 12:29] VITALS: BP 103/67; PULSE 55; O2SAT 98
--- NOTE | 2024-11-17 13:00 | PC.PHAR ---
Pt is [facility]. Pt just finished chemo but never needed to use any of the nausea medications-removed from chart.
[2024-11-17 13:15] VITALS: BP 101/66; PULSE 56; O2SAT 98
--- NOTE | 2024-11-19 08:19 | DCPLANNER ---
faxed packet to [facility]. pushed images.
== END 2024-11-17 13:16 | disposition home or self-care (01) ==
PROVIDERS: Emergency Provider Family Medicine
DX: N20.0 Calculus of kidney (principal)
CPT/HCPCS: 36415; 74176; 76830; 76856; 80053; 81001; 83690; 84703; 85025; 87086; 96374; 99285; J1885